=== PATIENT | female | born 1940 | race Caucasian/White ===

== ENCOUNTER 2019-06-28 12:02 | Inpatient (IN) | payer OTHER ==
[~2019-06-28] VITALS: Ht 154.9 cm; Wt 49.9 kg
[2019-06-28 12:39] LABS: BASOPHILS % (AUTO) 0.5 % (0.0-2.0); EOSINOPHILS % (AUTO) 0.6 % (0.0-6.0); HEMATOCRIT 41 % (33-45); HEMOGLOBIN 13.3 g/dL (11.5-14.8); LYMPHOCYTES % (AUTO) 12.1 % (20.0-44.0); MEAN CORPUSCULAR HGB CONC 33 g/dl (31.0-36.0); MEAN CORPUSCULAR VOLUME 91 fL (82-100); MONOCYTES # (AUTO) 0.6 /CMM (0.1-1.30); MONOCYTES % (AUTO) 7.1 % (2.0-12.0); NEUTROPHILS # (AUTO) 6.8 /CMM (1.8-8.9); NEUTROPHILS % (AUTO) 79.7 % (43.0-81.0); PLATELET COUNT (AUTO) 354 /CMM (150-450); RED BLOOD CELL COUNT(AUTO) 4.47 MIL/uL (4.0-5.2); WHITE BLOOD COUNT (AUTO) 8.5 K/uL (4.3-11.0)
--- NOTE | 2019-06-28 12:42 | NUR ---
DR. MARS (ONCOLOGIST) ON THE PHONE WITH DR. LOZANO.
--- NOTE | 2019-06-28 12:43 | NUR ---
Patient awake alert her friend @ bedside non persian speaking Noemy bonillaa for telehealth director -patient made aware plan of care .
[2019-06-28 12:49] LABS: CALCIUM, SERUM 9.2 mg/dL (8.5-10.1); CARBON DIOXIDE 28 mmol/L (21-32); CHLORIDE 95 mmol/L (98-107); CREATININE 0.9 mg/dL (0.6-1.3); GLUCOSE 136 mg/dL (74-106); POTASSIUM 5.8 mmol/L (3.5-5.1); SODIUM SERUM 129 mmol/L (136-145); UREA NITROGEN, BLOOD 11 mg/dL (7-18)
[2019-06-28 12:54] LABS: ALANINE AMINOTRANSFERASE 15 U/L (12-78); ALBUMIN 2.1 g/dL (3.4-5.0); ALKALINE PHOSPHATASE 115 U/L (46-116); ASPARTATE AMINOTRANSFERASE 48 U/L (15-37); BILIRUBIN,DIRECT 0.1 mg/dL (0.0-0.2); BILIRUBIN,TOTAL 0.5 mg/dL (0.2-1.0); LIPASE 63 U/L (73-393); TOTAL PROTEIN, SERUM 7.1 g/dL (6.4-8.2)
[2019-06-28] MEDS ORDERED: IOHEXOL-300 100 ML VIAL IV ONE (12:55)
[2019-06-28] MEDS ORDERED: IV NS 0.9% 250 ML IV ONE (12:55)
[2019-06-28] MEDS ORDERED: CT SWABBABLE VALVE TRANS SET 1 EA INFUS.SET MC ONE (12:55)
--- NOTE | 2019-06-28 13:39 | NUR ---
Patient agress for in and out cath prep and assisted by ANAIS Farooq observed sterile technique urine obtained and send to lab
[2019-06-28 13:43] LABS: APPEARANCE,URINE Clear (CLEAR); BILIRUBIN,URINE SMALL (NEGATIVE); BLOOD, URINE Negative Ery/uL (NEGATIVE); COLOR,URINE Yellow (YELLOW); KETONES,URINE 15 (NEGATIVE); LEUKOCYTE ESTERASE ,URINE Negative (NEGATIVE); NITRITE, URINE Negative (NEGATIVE); PROTEIN,URINE 30 mg/dl (NEGATIVE); UGLUCOSE Negative (NEGATIVE)
[2019-06-28 13:45] LABS: BACTERIA,URINE Few /HPF (None Seen); SQUAMOUS EPITHELIAL CELL,UR Few /HPF (None Seen)
--- NOTE | 2019-06-28 13:46 | NUR ---
CALLED [facility], PAGED SANAM
--- NOTE | 2019-06-28 13:50 | NUR ---
CALLED NURSING SUP FOR MEDSURG BED
--- NOTE | 2019-06-28 14:06 | NUR ---
BED ASSIGNED TO 308-1 PER NURSING PROTOTYPE DEICER ASSEMBLER.
[2019-06-28] MEDS ORDERED: Z GUARD REMEDY 2 OZ OINT TP PRN (14:30)
--- NOTE | 2019-06-28 14:31 | NUR ---
Called report [id number] spoke to Yasmin GONZALEZ
--- NOTE | 2019-06-28 14:34 | NUR ---
Noted RAC IV no edema .no redness ,no pain patient awake alert non distress no nausea and vomit @ this time continue to monitor
--- NOTE | 2019-06-28 15:30 | NUR ---
MS/RN Admitting note Patient received resting in bed, A/O x3, anxious, showing no signs of SOB, saturating >95% on RA. Skin assessed, sacral redness noted. Photo placed in chart. IV line is clean and patent, vital signs 123/63, 82, 21, 98.3, 98% RA. S/B Dr. Jordan and admitting orders given. With quill machine tender at bedside, Patient stated she has an at home medication that she takes daily, however, patient refuses to give medication to the pharmacy. Patient states she only takes medication for her HIV. Does not take any other medication. Patient states "The nurses take too long to take the medication, i would rather take it myself when I want to." Med Recon stated they tried to get medication information from the patient's AIDS clinic. Denied at first, due to protecting the patient's privacy. However, later on they sent medication list. Placed in chart. Patient refuses to take any other medication other than the ones she has brought with her. Bed is in lowest position, side rails x2 in upright position, call light is within reach and patient is aware of how to call for assistance when needed. Fall and safety precautions enforced. Will continue with plan of care.
[2019-06-28 16:00] VITALS: BP 123/62
[2019-06-28] MEDS ORDERED: [UNRECOGNIZED DRUG - REMARK] PO (16:22)
[2019-06-28] MEDS ORDERED: BICT1TAB PO (16:22)
[2019-06-28] MEDS ORDERED: ENSURE ENLIVE 237 ML LIQUID (VANILLA) PO SCH (17:00)
[2019-06-28 17:05] VITALS: BP 123/62
--- NOTE | 2019-06-28 18:30 | NUR ---
MS/RN Closing note Patient is resting in bed, A/O x4, showing no signs of acute distress or SOB, saturating >95% on RA. Iv line is clean and patent. All patient needs met. Bed is in lowest position, side rails x2 in upright position, call light is within reach and patient is aware of how to call for assistance when needed. Will endorse to shift boss.
[2019-06-28] MEDS: HYDROCODONE/APAP 5/325MG 1 EACH TABLET PO PRN (19:23)
--- NOTE | 2019-06-28 19:30 | NUR ---
MS RN NOTES RECEIVED ON BED A/O X3,BREATHING NON LABORED,ABLE TO VERBALIZED NEEDS.SALINE LOCK RIGHT AC INTACT AND PATENT.C/O ABDOMINAL PAIN 1/10 ON PAIN SCALE,JUST MEDICATED WITH NORCO BY DAY NURSE.ABDOMEN DISTENDED BUT SOFT, AWAITING ULTRASOUND PARACENTESIS,CONSENT SIGNED.CALL LIGHT IN REACH,NEEDS ANTICIPATED.
--- NOTE | 2019-06-28 19:39 | NUR ---
MS/RN home-med After having med-recon, myself and 2 translators explain to the patient if we can give her home med to the pharmacy, to give during her stay here at [facility], patient still refuses. She insists on taking it herself at the bedside. Charge nurse lamont, MD miguel, pharmacy notified.
[2019-06-28 20:00] VITALS: BP 111/70
[2019-06-28] MEDS: MAG HYDROX/AL HYDROX/SIMETH 30 ML UDC PO PRN (21:29)
--- NOTE | 2019-06-28 21:29 | NUR ---
MS RN NOTES C/O SOUR REFLUX,HOB ELEVATED,MEDICATED WITH MAALOX 30ML PO ORDERED.
[2019-06-28] MEDS: BLOOD SUGAR DIAGNOSTIC 1 EACH STRIP IN SCH (21:30)
--- NOTE | 2019-06-28 21:45 | NUR ---
MS RN NOTES ACCU-CHECK BLOOD SUGAR CHECK 158,REFUSED INSULIN
[2019-06-28 22:00] VITALS: BP 111/70
[2019-06-29] MEDS: ONDANSETRON HCL/PF 4 MG/2 ML VIAL IVP PRN (01:33)
--- NOTE | 2019-06-29 01:33 | NUR ---
MS RN NOTES VOMITING,MEDICATED WITH ZOFRAN 4MG IV ORDERED
[2019-06-29] MEDS: BLOOD SUGAR DIAGNOSTIC 1 EACH STRIP IN SCH ×4 (05:56→21:38)
--- NOTE | 2019-06-29 05:59 | NUR ---
SHAHLA GONZALEZ NOTES BLOOD SUGAR CHECK 108,NO INSULIN COVERAGE Addendum: 06/29/19 at 0602 by MURALI STUART RN WRONG ENTRY OF NOTES,NOT FOR THIS PATIENT.
--- NOTE | 2019-06-29 06:00 | NUR ---
MS RN NOTES ACCU-CHECK BLOOD SUGAR CHECK 122,NO INSULIN COVERAGE.
[2019-06-29 06:29] LABS: CALCIUM, SERUM 8.4 mg/dL (8.5-10.1); CREATININE 0.7 mg/dL (0.6-1.3); MAGNESIUM 2.2 mg/dL (1.8-2.4); POTASSIUM 5.1 mmol/L (3.5-5.1)
[2019-06-29 06:30] LABS: BASOPHILS % (AUTO) 0.5 % (0.0-2.0); EOSINOPHILS % (AUTO) 0.4 % (0.0-6.0); HEMATOCRIT 38 % (33-45); HEMOGLOBIN 12.4 g/dL (11.5-14.8); LYMPHOCYTES % (AUTO) 10.8 % (20.0-44.0); MEAN CORPUSCULAR HGB CONC 33 g/dl (31.0-36.0); MEAN CORPUSCULAR VOLUME 90 fL (82-100); MONOCYTES # (AUTO) 0.6 /CMM (0.1-1.30); NEUTROPHILS # (AUTO) 7.2 /CMM (1.8-8.9); NEUTROPHILS % (AUTO) 81.3 % (43.0-81.0); PLATELET COUNT (AUTO) 379 /CMM (150-450); RED BLOOD CELL COUNT(AUTO) 4.16 MIL/uL (4.0-5.2); WHITE BLOOD COUNT (AUTO) 8.8 K/uL (4.3-11.0)
--- NOTE | 2019-06-29 06:37 | NUR ---
MS RN NOTES RESTING COMFORTABLY ON BED,NAUSEA,VOMITING IMPROVED,ABDOMEN REMAINS DISTENDED AWAITING ULTRASOUND PARACENTESIS.IN NO ACUTE DISTRESS.WILL ENDORSE TO DAY NURSE FOR JENNIFER.
[2019-06-29 08:00] VITALS: BP_SYST 138; BP_SYST 159; BP_DIAS 66; BP_DIAS 79
[2019-06-29] MEDS: BIKTARVY PO SCH (09:00)
--- NOTE | 2019-06-29 09:00 | NUR ---
MS RN NOTES PATIENT HAS BIKTARVY (BICTEGRAVIR/EMTRICITABINE/TENOFOVIR) AT BEDSIDE AND IS SELF ADMINISTERING. PATIENT REFUSED TO GIVE MEDICATION TO PHARMACY AND VERBALIZED SHE WILL TAKE ONE TABLET PO DAILY. PATIENT DOSED THIS AM. MD AWARE. PHARMACY AWARE.
[2019-06-29] MEDS: HYDROCODONE/APAP 5/325MG 1 EACH TABLET PO PRN ×3 (09:57→21:45)
[2019-06-29] MEDS: GLUCERNA SHAKE 237 ML CAN PO SCH ×2 (09:57→17:33)
[2019-06-29] MEDS: ACETAMINOPHEN 325 MG TABLET PO PRN (12:32)
--- NOTE | 2019-06-29 13:50 | NUR ---
RN MS NOTES US GUIDED PARACENTESIS DONE AT BEDSIDE. 3500 ML OUTPUT. PATIENT RESTING COMFORTABLY, NO DISTRESS NOTED, VS ARE STABLE. BODY FLUID TAKEN TO LAB.
[2019-06-29 16:00] VITALS: BP 130/70
--- NOTE | 2019-06-29 19:08 | NUR ---
Patient resting in bed. IV access intact and patent, HL. Patient able to walk to bathroom with assistance. All needs attended. Will endorse to next shift for JENNIFER.
--- NOTE | 2019-06-29 19:30 | NUR ---
MS/RN OPENING NOTES: RECEIVED PATIENT ON BED A/O X4, BREATHING EVEN AND NON LABORED, VERBALLY RESPONSIVE AND ABLE TO MAKE NEEDS KNOWN. IV ACCESS LOCATED ON THE RIGHT AC #20G HL INTACT AND PATENT. NO COMPLAINS OF PAIN AT THIS TIME. SAFETY MEASURES ARE IN PLACE. CALL LIGHT IN REACH. WILL MONITOR PATIENT ACCORDINGLY.
[2019-06-29 20:00] VITALS: BP 100/58
--- NOTE | 2019-06-29 21:45 | NUR ---
MS/RN NOTES: PATIENT COMPLAINED OF 6/10 HEADACHE. NORCO 5-325 1 TAB PO WAS GIVEN ORDERED FOR MODERATE PAIN. PATIENT IS STABLE. WILL MONITOR PATIENT ACCORDINGLY.
[2019-06-30 06:27] LABS: BASOPHILS % (AUTO) 0.3 % (0.0-2.0); EOSINOPHILS % (AUTO) 0.9 % (0.0-6.0); HEMATOCRIT 37 % (33-45); HEMOGLOBIN 11.8 g/dL (11.5-14.8); LYMPHOCYTES # (AUTO) 0.8 /CMM (0.8-4.8); LYMPHOCYTES % (AUTO) 10.1 % (20.0-44.0); MEAN CORPUSCULAR HGB CONC 32 g/dl (31.0-36.0); MEAN CORPUSCULAR VOLUME 91 fL (82-100); MONOCYTES # (AUTO) 0.7 /CMM (0.1-1.30); MONOCYTES % (AUTO) 8.6 % (2.0-12.0); NEUTROPHILS # (AUTO) 6.4 /CMM (1.8-8.9); NEUTROPHILS % (AUTO) 80.1 % (43.0-81.0); PLATELET COUNT (AUTO) 327 /CMM (150-450); RED BLOOD CELL COUNT(AUTO) 4.03 MIL/uL (4.0-5.2)
--- NOTE | 2019-06-30 06:35 | NUR ---
MS/RN CLOSING NOTES: PATIENT IS IN BED SLEEPING AND AROUSABLE TO VERBAL STIMULI. NO SIGNIFICANT CHANGES IN CONDITION. BREATHING EVEN AND NON LABORED. IV ACCESS ON THE RIGHT AC #20G HL INTACT AND PATENT. NO COMPLAINS OF PAIN AT THIS TIME. SAFETY MEASURES ARE IN PLACE. CALL LIGHT IN REACH. KEPT PT WARM AND DRY AT ALL TIMES. ALL NURSING NEEDS MET AND PROVIDED. WILL ENDORSE TO DAY SHIFT FOR JENNIFER.
[2019-06-30 06:46] LABS: CREATININE 0.7 mg/dL (0.6-1.3); POTASSIUM 4.9 mmol/L (3.5-5.1)
[2019-06-30] MEDS: BLOOD SUGAR DIAGNOSTIC 1 EACH STRIP IN SCH ×4 (06:52→21:37)
--- NOTE | 2019-06-30 07:31 | NUR ---
MS/RN Opening note Patient received resting in bed, A/O x4, showing no signs of acute distress or SOB, saturating >95% on RA. IV line is clean and patent. Bed is in lowest position, side rails x2 in upright position, call light is within reach and patient is aware of how to call for assistance when needed. Fall and safety precautions enforced. Will continue with plan of care.
[2019-06-30] MEDS: HYDROCODONE/APAP 5/325MG 1 EACH TABLET PO PRN ×2 (07:47→17:19)
[2019-06-30] MEDS: ONDANSETRON HCL/PF 4 MG/2 ML VIAL IVP PRN ×2 (07:47→18:08)
[2019-06-30 08:00] VITALS: BP 113/68
[2019-06-30 08:08] LABS: CANCER AG, 15-3 414.3 U/mL (0.0-25.0)
[2019-06-30] MEDS: GLUCERNA SHAKE 237 ML CAN PO SCH ×2 (08:51→17:19)
--- NOTE | 2019-06-30 08:53 | NUR ---
MS/RN home med Patient has Biktarvy (Bictegravir/emtricitabine/tenofovir) at bedside and is self-administering. Patient refused to give medication to pharmacy and verbalized she will take ONE TABLET PO DAILY. Patient stated she wants to rest and she has not taken it and will take it around 1200. MD aware. Pharmacy aware. Will continue to monitor.
--- NOTE | 2019-06-30 09:06 | NUR ---
MS/RN note S/B MD, stated patient will not need coverage for blood glucose level due to patient not being able to eat anything due to N/V.
[2019-06-30 09:17] VITALS: BP 113/68
[2019-06-30] MEDS: BIKTARVY PO SCH (11:00)
--- NOTE | 2019-06-30 11:26 | NUR ---
MS/RN blood sugar BS 145, no coverage per MD, due to patient not being able to eat
[2019-06-30 16:00] VITALS: BP 132/64
[2019-06-30 17:30] VITALS: BP 132/64
[2019-06-30] MEDS: ACETAMINOPHEN 325 MG TABLET PO PRN (17:30)
--- NOTE | 2019-06-30 17:35 | NUR ---
MS/RN note BS 164, no coverage this time since patient is not eating. MD aware.
--- NOTE | 2019-06-30 18:19 | NUR ---
MS/RN CLOSING NOTE Patient is resting in bed, A/O x4, showing no signs of acute distress or SOB, saturating >95% on RA. Vital signs WNL. Temp was 99.1 but went down to 98.0 after tylenol given. IV line removed. Patient kept clean and dry throughout shift. All patient needs met. Patient takes own home medication at the bedside. MD aware, pharmacy aware. Bed is in lowest position, side rails x2 in upright position, call light is within reach and patient is aware of how to call for assistance when needed. Will endorse to legal support assistant.
--- NOTE | 2019-06-30 19:05 | NUR ---
MS RN NOTES Received pt in bed awake and able to make needs known. pt a/o x3 Zimbabwean speaking but also understands Vietnamese. Respirations even and unlabored with no s/s of acute distress or sob noted. a this time. pt noted with no iv access at this time. Pt noted as able to take own home medication at the bedside, MD aware, as well as pharmacy. safety measures in place with bed in lowest locked position with side rails up x2. call light within reach. will continue to monitor.
[2019-06-30 20:00] VITALS: BP 107/63
[2019-06-30] MEDS: MORPHINE SULFATE SR 15 MG TABLET.SA PO SCH (21:36)
[2019-06-30] MEDS: ONDANSETRON 4 MG TAB.RAPDIS PO PRN (21:37)
[2019-07-01] MEDS: BLOOD SUGAR DIAGNOSTIC 1 EACH STRIP IN SCH ×4 (06:52→22:08)
--- NOTE | 2019-07-01 06:53 | NUR ---
MS RN NOTES Received pt in bed awake and able to make needs known. pt a/o x3 Sudanese speaking but also understands Greek. Respirations even and unlabored with no s/s of acute distress or sob noted at this time. pt noted with no iv access at this time. Pt noted as able to take own home medication at the bedside, MD aware, as well as pharmacy. pt kept clean, dry, and comfortable. pt noted with 2 episodes of vomiting 150cc out. safety measures in place with bed in lowest locked position with side rails up x2. call light within reach. will endorse to oncoming nurse for shirley.
--- NOTE | 2019-07-01 07:50 | NUR ---
MS/RN Opening note Patient received resting in bed, A/O x4, showing no signs of acute distress or SOB, saturating >95% on RA. No IV line noted. Patient is taking home medications at the bedside, MD aware, pharmacy aware. Bed is in lowest position, side rails x2 in upright position, call light is within reach and patient is aware of how to call for assistance when needed. Safety measures in place. Will continue with plan of care.
[2019-07-01 08:00] VITALS: BP 124/70
[2019-07-01] MEDS: GLUCERNA SHAKE 237 ML CAN PO SCH ×2 (08:00→16:24)
[2019-07-01] MEDS: MORPHINE SULFATE SR 15 MG TABLET.SA PO SCH ×2 (08:43→22:08)
[2019-07-01] MEDS: DOCUSATE SODIUM 100 MG CAPSULE PO SCH ×2 (08:44→16:23)
[2019-07-01] MEDS: ONDANSETRON 4 MG TAB.RAPDIS PO PRN (08:56)
[2019-07-01 09:00] VITALS: BP 124/70
--- NOTE | 2019-07-01 09:00 | NUR ---
MS/RN note patient stated she will take her home med at the bedside at 1200. MD aware, pharmacy aware. Will continue to monitor.
[2019-07-01 10:11] LABS: BASOPHILS % (AUTO) 0.2 % (0.0-2.0); EOSINOPHILS % (AUTO) 0.3 % (0.0-6.0); HEMATOCRIT 37 % (33-45); HEMOGLOBIN 12.4 g/dL (11.5-14.8); LYMPHOCYTES # (AUTO) 0.9 /CMM (0.8-4.8); LYMPHOCYTES % (AUTO) 9.5 % (20.0-44.0); MEAN CORPUSCULAR HGB CONC 33 g/dl (31.0-36.0); MEAN CORPUSCULAR VOLUME 91 fL (82-100); MONOCYTES # (AUTO) 0.8 /CMM (0.1-1.30); MONOCYTES % (AUTO) 7.9 % (2.0-12.0); NEUTROPHILS # (AUTO) 8.1 /CMM (1.8-8.9); NEUTROPHILS % (AUTO) 82.1 % (43.0-81.0); PLATELET COUNT (AUTO) 338 /CMM (150-450); RED BLOOD CELL COUNT(AUTO) 4.12 MIL/uL (4.0-5.2); WHITE BLOOD COUNT (AUTO) 9.8 K/uL (4.3-11.0)
[2019-07-01 10:59] LABS: CREATININE 0.7 mg/dL (0.6-1.3); POTASSIUM 4.8 mmol/L (3.5-5.1)
[2019-07-01] MEDS: MAG HYDROX/AL HYDROX/SIMETH 30 ML UDC PO PRN (11:40)
--- NOTE | 2019-07-01 12:30 | NUR ---
MS/RN note POC 160. No coverage.
[2019-07-01] MEDS: BIKTARVY PO SCH (15:00)
[2019-07-01] MEDS: HYDROCODONE/APAP 5/325MG 1 EACH TABLET PO PRN (15:12)
[2019-07-01 16:00] VITALS: BP 104/69
--- NOTE | 2019-07-01 16:30 | NUR ---
MS/RN note POC glucose 164. No coverage. Per MD, since patient is not eating.
--- NOTE | 2019-07-01 18:20 | NUR ---
MS/RN Closing note Patient is resting in bed, A/O x4, showing no signs of acute distress or SOB, saturating >95% on RA. Vital signs WNL. No IV line noted. Patient took home medication at the bedside, MD aware, pharmacy aware. All patient needs met, all due meds given. Patient refused bed bath/shower this shift. Linen change done. Bed is in lowest position, side rails x2 in upright position, call light is within reach and patient is aware of how to call for assistance when needed. Safety measures in place. Will endorse to storage brine worker.
[2019-07-01 19:30] VITALS: BP 108/68
--- NOTE | 2019-07-01 19:30 | NUR ---
MS RN NOTES PATIENT IN BED, AWAKE ALERT AND ORIENTED X 4. SHOWS NO SIGNS OF ACUTE DISTRESS, NO SOB. BREATHING EVEN AND UNLABORED ON ROOM AIR. NO IV LINE NOTED. PATIENT TAKES HOME MEDICATIONS AT BEDSIDE, MD IS AWARE. SAFETY PRECAUTIONS ARE IN PLACE. BED IN LOWEST POSITION LOCKED AND CALL LIGHT KEPT WITHIN REACH. WILL CONTINUE TO MONITOR.
[2019-07-01 20:00] VITALS: BP 108/68
--- NOTE | 2019-07-01 21:55 | NUR ---
MS RN NOTES PATIENT BG 172. NO COVERAGE GIVEN, PATIENT NOT EATING. MD IS AWARE.
[2019-07-02] MEDS ORDERED: hydrALAZINE HCL IV 20 MG VIAL IV PRN (04:00)
[2019-07-02 06:20] LABS: BASOPHILS # (AUTO) 0.1 /CMM (0.0-0.2); BASOPHILS % (AUTO) 1.1 % (0.0-2.0); EOSINOPHILS % (AUTO) 0.6 % (0.0-6.0); HEMATOCRIT 37 % (33-45); LYMPHOCYTES # (AUTO) 0.9 /CMM (0.8-4.8); LYMPHOCYTES % (AUTO) 11.1 % (20.0-44.0); MEAN CORPUSCULAR HGB CONC 33 g/dl (31.0-36.0); MEAN CORPUSCULAR VOLUME 91 fL (82-100); MONOCYTES # (AUTO) 0.7 /CMM (0.1-1.30); MONOCYTES % (AUTO) 8.3 % (2.0-12.0); NEUTROPHILS # (AUTO) 6.5 /CMM (1.8-8.9); NEUTROPHILS % (AUTO) 78.9 % (43.0-81.0); PLATELET COUNT (AUTO) 346 /CMM (150-450); RED BLOOD CELL COUNT(AUTO) 4.04 MIL/uL (4.0-5.2); WHITE BLOOD COUNT (AUTO) 8.3 K/uL (4.3-11.0)
[2019-07-02 06:28] LABS: CALCIUM, SERUM 8.3 mg/dL (8.5-10.1); CREATININE 0.8 mg/dL (0.6-1.3); POTASSIUM 5.4 mmol/L (3.5-5.1)
[2019-07-02] MEDS: BLOOD SUGAR DIAGNOSTIC 1 EACH STRIP IN SCH ×4 (06:32→21:34)
--- NOTE | 2019-07-02 06:33 | NUR ---
MS RN NOTES PATIENT IN BED ASLEEP ALERT AND ORIENTED X 4. SHOWS NO SIGNS OF ACUTE DISTRESS, NO SOB. BREATHING EVEN AND UNLABORED ON ROOM AIR. NO IV LINE NOTED. PATIENT TAKES HOME MEDICATIONS AT BEDSIDE, MD IS AWARE. ALL DUE MEDICATIONS GIVEN. SAFETY PRECAUTIONS ARE IN PLACE. BED IN LOWEST POSITION LOCKED AND CALL LIGHT KEPT WITHIN REACH. WILL ENDORSE TO ONCOMING NURSE.
[2019-07-02 07:41] LABS: EOSINOPHILS % (MANUAL) 1 % (0-4); LYMPHOCYTES % (MANUAL) 15 % (16-48); MONOCYTES % (MANUAL) 7 % (0-11.0); NEUTROPHILS % (MANUAL) 77 (42-76)
--- NOTE | 2019-07-02 07:41 | NUR ---
MS/RN Opening note Patient received resting in bed, A/O x4, showing no signs of acute distress or SOB, breathing even and unlabored saturating >95% on RA. No IV line noted. Patient takes home medication at the bedside, MD aware, Pharmacy aware. Bed is in lowest position, side rails x3 in upright position, call light is within reach and patient is aware of how to call for assistance when needed. Fall and safety precautions are in place. Will continue with plan of care.
[2019-07-02 08:00] VITALS: BP 114/75
[2019-07-02] MEDS: GLUCERNA SHAKE 237 ML CAN PO SCH ×2 (08:00→17:04)
[2019-07-02] MEDS ORDERED: IV NS 0.9% 1,000 ML BAG IV SCH ×2 (08:00→19:30)
[2019-07-02] MEDS: MORPHINE SULFATE SR 15 MG TABLET.SA PO SCH ×2 (08:25→21:30)
[2019-07-02] MEDS: DOCUSATE SODIUM 100 MG CAPSULE PO SCH ×2 (08:29→17:00)
[2019-07-02] MEDS ORDERED: LORAZEPAM 0.5 MG TABLET PO PRN (09:00)
--- NOTE | 2019-07-02 09:00 | NUR ---
MS/RN NOTE Patient self-admin home med at the bedside. MD aware, pharmacy aware.
[2019-07-02] MEDS: BIKTARVY PO SCH (10:00)
[2019-07-02] MEDS: IV NS 0.9% 1,000 ML IV PRN (11:20)
[2019-07-02] MEDS: HYDROCODONE/APAP 5/325MG 1 EACH TABLET PO PRN (15:48)
[2019-07-02] MEDS: ONDANSETRON 4 MG TAB.RAPDIS PO PRN (15:49)
[2019-07-02 16:00] VITALS: BP 102/69
--- NOTE | 2019-07-02 18:08 | NUR ---
MS/RN Closing note Patient is resting in bed, A/O x4, showing no signs of acute distress or SOB, breathing even and unlabored saturating >95% on RA. IV line in the left upper arm #22g is clean and running NS @ 75ml/hr. Patient took home medication at the bedside, MD aware, Pharmacy aware. Patient kept clean and dry throughout shift, all patient needs met, all due meds given. Bed is in lowest position, side rails x3 in upright position, call light is within reach and patient is aware of how to call for assistance when needed. Fall and safety precautions are in place. Will endorse to notch machine operator.
--- NOTE | 2019-07-02 19:30 | NUR ---
MS RN OPENING NOTES PATIENT SLEEPING IN BED, EASY TO AWAKEN. ALERT & ORIENTED X 4. NO S/S OF ACUTE RESPIRATORY DISTRESS OR SOB. NO COMPLAINTS OF PAIN AT THIS TIME. IV PRESENT ON RIGHT AC, INTACT & PATENT, WITH NS RUNNING AT 75ML/HR. BED LOCKED, IN SEMI-FOWLERS POSITION, SIDE RAILS X2, CALL LIGHT WITHIN REACH. WILL CONTINUE TO MONITOR.
[2019-07-02 20:00] VITALS: BP 111/68
[2019-07-02 20:46] VITALS: BP 111/68
[2019-07-03] VITALS (10 sets, daily range): BP systolic 96–116; BP diastolic 60–86
[2019-07-03] MEDS: ZOLPIDEM TARTRATE 5 MG TABLET PO PRN (02:00)
--- NOTE | 2019-07-03 02:00 | NUR ---
MS RN NOTES PATIENT REPORTED DIFFICULTY FALLING ASLEEP. ADMINISTERED PRN AMBIEN 5MG PER PATIENT'S REQUEST. VITAL SIGNS - BP: 100/23 HR: 94 RR: 18. CALL LIGHT WITHIN REACH. WILL CONTINUE TO MONITOR EFFECTIVENESS OF MEDICATION.
--- NOTE | 2019-07-03 06:49 | NUR ---
MS RN CLOSING NOTES PATIENT SLEEPING IN BED, EASY TO AWAKEN. ALERT & ORIENTED X 4. ON ROOM AIR. PATIENT NPO SINCE MIDNIGHT. CONSENTS FOR PORTACATH INSERTION SIGNED AND PLACED IN CHART. NO S/S OF ACUTE RESPIRATORY DISTRESS AND NO COMPLAINTS OF PAIN AT THIS TIME. IV ON LEFT UPPER ARM, SIZE 22, INTACT & PATENT, NS RUNNING AT 75CC/HR. BED LOCKED, SIDE RAILS X2, SEMI-THOMAS'S POSITION, CALL LIGHT WITHIN REACH. WILL ENDORSE TO DAY SHIFT NURSE TO FOLLOW PLAN OF CARE.
[2019-07-03] MEDS: BLOOD SUGAR DIAGNOSTIC 1 EACH STRIP IN SCH ×4 (06:58→21:47)
--- NOTE | 2019-07-03 07:05 | NUR ---
MS RN OPENING NOTES. RECEIVED PATIENT IN BED, ALERT AND AWAKE. NO SOB. DENIES ANY C/O PAIN NOR DISCOMFORT AT THIS TIME. NPO FOR PORTACATH PLACEMENT TODAY AT 12PM. LEFT UPPER ARM IV ACCES INTACT AND PATENT. BED IN LOWEST POSITION, LOCKED. BED ALARM ON. CALL LIGHT WITHIN REACH.
[2019-07-03] MEDS: GLUCERNA SHAKE 237 ML CAN PO SCH ×2 (08:00→17:20)
[2019-07-03] MEDS: DOCUSATE SODIUM 100 MG CAPSULE PO SCH ×2 (09:01→17:03)
[2019-07-03] MEDS: MORPHINE SULFATE SR 15 MG TABLET.SA PO SCH ×2 (09:02→21:00)
[2019-07-03 09:04] LABS: BASOPHILS % (AUTO) 0.5 % (0.0-2.0); EOSINOPHILS % (AUTO) 0.8 % (0.0-6.0); HEMATOCRIT 36 % (33-45); HEMOGLOBIN 11.6 g/dL (11.5-14.8); LYMPHOCYTES # (AUTO) 0.9 /CMM (0.8-4.8); LYMPHOCYTES % (AUTO) 10.1 % (20.0-44.0); MEAN CORPUSCULAR HGB CONC 32 g/dl (31.0-36.0); MEAN CORPUSCULAR VOLUME 91 fL (82-100); MONOCYTES # (AUTO) 0.8 /CMM (0.1-1.30); MONOCYTES % (AUTO) 9.3 % (2.0-12.0); NEUTROPHILS # (AUTO) 6.8 /CMM (1.8-8.9); NEUTROPHILS % (AUTO) 79.3 % (43.0-81.0); PLATELET COUNT (AUTO) 339 /CMM (150-450); RED BLOOD CELL COUNT(AUTO) 3.92 MIL/uL (4.0-5.2); WHITE BLOOD COUNT (AUTO) 8.6 K/uL (4.3-11.0)
[2019-07-03] MEDS: BIKTARVY PO SCH (09:09)
[2019-07-03] MEDS: IV NS 0.9% 1,000 ML IV PRN (09:10)
[2019-07-03 09:18] LABS: CALCIUM, SERUM 7.9 mg/dL (8.5-10.1); CREATININE 0.7 mg/dL (0.6-1.3); POTASSIUM 5.2 mmol/L (3.5-5.1)
--- NOTE | 2019-07-03 12:12 | NUR ---
MS RN NOTES PATIENT OFF UNIT. LEFT FOR IN STABLE CONDITION.
[2019-07-03] MEDS ORDERED: IOHEXOL 240MG/ML 0 ML IV ONE (12:21)
[2019-07-03] MEDS ORDERED: ANESTHESIA TRAY IN PYXIS 1 EA TRAY MC ONE (12:21)
[2019-07-03] MEDS ORDERED: LIDOCAINE HCL/MPF 1% 30 ML VIAL IJ ONE (12:22)
--- NOTE | 2019-07-03 15:20 | NUR ---
MS RN NOTES PATIENT RETURNED FROM OR FOR LAMAR-CATH PLACEMENT TO RIGHT UPPER CHEST. INCISION SITE NOTED TO RT SIDE OF NECK AND RIGHT UPPER CHEST WITHOUT S/S OF COMPLICATIONS OBSERVED WITH DERMABOND IN PLACE. ALERT AND VERBALLY RESPONSIVE. DENIES ANY C/O PAIN NOR DISCOMFORT AT THIS TIME. BED IN LOWEST POSITION, LOCKED. BED ALARM ON. CALL LIGHT WITHIN REACH. LEFT UPPER # 22 INTACT AND PATENT. IVF RESUMED ORDERED.
[2019-07-03] MEDS: ACETAMINOPHEN 325 MG TABLET PO PRN (17:03)
--- NOTE | 2019-07-03 18:48 | NUR ---
MS RN CLOSING NOTES ALERT AND ORIENTED X4. NO S/S OF RESPIRATORY DISTRESS. DENIES ANY C/O PAIN NOR DISCOMFORT AT THIS TIME. RESTING COMFORTABLY IN BED. REMINDED AND RE-EDUCATED PATIENT THE USE OF INCENTIVE SPIROMETER. LEFT UPPER ARM # 22 INTACT AND PATENT INFUSING NS @ 75 ML/HR KAZ WELL. . BED IN LOWEST POSITION, LOCKED. BED ALARM ON. CALL LIGHT WITHIN REACH. IN NO APPARENT DISTRESS.
--- NOTE | 2019-07-03 19:35 | NUR ---
MS RN OPENING NOTES Patient is received resting in bed a/o x4. Stable on room air, breathing even and unlabored, no signs of respiratory distress. Incentive spirometer is at bedside, reminded to use often throughout the hour. Denies any pain at this time and no acute distress noted. IV located on KAYE #22 running NS @ 75 ml/hr. Safety precautions are in place with bed in lowest position, locked, and call light within reach. Will continue to monitor.
[2019-07-03] MEDS: HYDROCODONE/APAP 5/325MG 1 EACH TABLET PO PRN (21:15)
--- NOTE | 2019-07-03 21:47 | NUR ---
MS RN NOTES FSBS- 228. NO COVERAGE.
[2019-07-04] MEDS: IV NS 0.9% 1,000 ML IV PRN (04:50)
--- NOTE | 2019-07-04 06:07 | NUR ---
MS RN CLOSING NOTES PATIENT IS CURRENTLY RESTING IN BED, A/O X3-4. STABLE ON RA BREATHING EVEN AND UNLABORED, NO SIGNS OF SOB OR ACUTE DISTRESS. NO COMPLAINTS OF ANY PAIN OR DISCOMFORT AT THE MOMENT. POST-OP RIGHT UPPER CHEST PORTACATH. IV LOCATED N LEFT HAND G#24 RUNNING NS. ALL NEEDS WERE MET, PATIENT WAS KEPT CLEAN AND DRY THROUGHOUT THE NIGHT. SAFETY PRECAUTIONS IN PLACE WITH BED IN LOWEST POSITION, CALL LIGHT WITHIN REACH, AND BREAKS ON. WILL ENDORSE TO ONCOMING SHIFT ABOUT JENNIFER.
[2019-07-04 06:35] LABS: BASOPHILS % (AUTO) 0.1 % (0.0-2.0); HEMATOCRIT 34 % (33-45); LYMPHOCYTES # (AUTO) 0.8 /CMM (0.8-4.8); MEAN CORPUSCULAR HGB CONC 33 g/dl (31.0-36.0); MEAN CORPUSCULAR VOLUME 91 fL (82-100); MONOCYTES # (AUTO) 0.8 /CMM (0.1-1.30); MONOCYTES % (AUTO) 7.7 % (2.0-12.0); NEUTROPHILS # (AUTO) 8.4 /CMM (1.8-8.9); NEUTROPHILS % (AUTO) 84.2 % (43.0-81.0); PLATELET COUNT (AUTO) 332 /CMM (150-450); RED BLOOD CELL COUNT(AUTO) 3.72 MIL/uL (4.0-5.2); WHITE BLOOD COUNT (AUTO) 9.9 K/uL (4.3-11.0)
[2019-07-04 06:57] LABS: CALCIUM, SERUM 7.9 mg/dL (8.5-10.1); CREATININE 0.7 mg/dL (0.6-1.3); POTASSIUM 4.7 mmol/L (3.5-5.1)
[2019-07-04 08:00] VITALS: BP 115/66
--- NOTE | 2019-07-04 08:00 | NUR ---
MS RN OPENING NOTES RECEIVED PT IN BED. AWAKE, ALERT AND ORIENTED X3-4. SPEAKS CAMEROONIAN AND TAJIK. LAMAR CATH NOTED ON R UPPER CHEST. FALL RISK PRECAUTIONS IN PLACE. IV SITE INTACT AND PATENT. NO S/S OF INFECTION AND INFILTRATION NOTED. IV SITE NOTED ON KAYE G22. NS RUNNING AT 75CC/HR. PT ATE 90% OF BREAKFAST. WITH GLUCERNA. PT TOOK ALL DUE MEDS. TOLERATED WELL. NO ASE NOTED. NO S/S OF DEHYDRATION NOTED. SKIN TURGOR FAIR. MUCOUS MEMBRANES PINK AND MOIST. WILL CONTINUE TO MONITOR
[2019-07-04] MEDS: BIKTARVY PO SCH (08:36)
[2019-07-04] MEDS: DOCUSATE SODIUM 100 MG CAPSULE PO SCH ×2 (08:36→16:51)
[2019-07-04] MEDS: GLUCERNA SHAKE 237 ML CAN PO SCH ×2 (08:37→16:51)
[2019-07-04] MEDS: MORPHINE SULFATE SR 15 MG TABLET.SA PO SCH ×2 (08:43→21:08)
[2019-07-04] MEDS: HYDROCODONE/APAP 5/325MG 1 EACH TABLET PO PRN ×2 (08:44→13:41)
[2019-07-04] MEDS: BLOOD SUGAR DIAGNOSTIC 1 EACH STRIP IN SCH ×4 (09:04→21:09)
[2019-07-04 16:00] VITALS: BP 126/66
[2019-07-04] MEDS: ACETAMINOPHEN 325 MG TABLET PO PRN ×2 (17:17→21:42)
--- NOTE | 2019-07-04 17:59 | NUR ---
MR RN CLOSING NOTES PT IN BED, AWAKE ALERT AND ORIENTED X3-4. PLEASANT AND COOPERATIVE. NO COMPLAINTS OF PAIN OR DISCOMFORT. IV SITE NOTED ON L HAND 24G. NO S/S OF INFECTION OR INFILTRATION NOTED. PT IS AMBULATORY WITH ASSIST. PT WAS SEEN BY PT TODAY AND WAS ABLE TO AMBULATE AROUND THE UNIT. CONTINENT OF B/B. FALL RISK PRECAUUTIONS IN PLACE. INSTRUCTED PT TO ASK FOR ASSISTANCE FROM STAFF IF WANTING TO GET OUT OF BED. WILL CONT TO MONITOR.
--- NOTE | 2019-07-04 19:10 | NUR ---
MS RN RECEIVE PT IN BED A/O X 3, NO SHORTNESS OF BREATH. STABLE AND NOT IN DISTRESS,SAFETY MEASURES IN PLACE. WILL CONTINUE TO MONITOR.
[2019-07-04 19:58] VITALS: BP 108/57
[2019-07-04 20:00] VITALS: BP 108/57
[2019-07-04] MEDS: ZOLPIDEM TARTRATE 5 MG TABLET PO PRN (21:42)
[2019-07-05] MEDS: BLOOD SUGAR DIAGNOSTIC 1 EACH STRIP IN SCH ×4 (06:14→21:19)
--- NOTE | 2019-07-05 06:36 | NUR ---
MS RN PT ASLEEP AND EASILY AWAKEN, NO SOB, NO CHETS PAIN. NO S/S OF DISTRESS. NEEDS ATTENDED AND ANTICIPATED. KEPT CLEAN, DRY AND COMFORTABLE AT ALL TIMES. MONITORED FOR PAIN. NO C/O PAIN THIS TIME.AM CARE RENDERED. WILL ENDORSE NEXT SHIFT POC.
[2019-07-05] MEDS: GLUCERNA SHAKE 237 ML CAN PO SCH ×2 (07:44→16:41)
--- NOTE | 2019-07-05 07:51 | NUR ---
MS/RN - Assessment Patient is awake, A/O x 3, no complaints overnight, denies pain at this time, no apparent distress noted, afebrile, stable on room air. Saline lock on the left hand is patent, intact, with no signs of infiltration. Labs pending result. Patient educated on plan of care. Will continue with current medical management.
[2019-07-05 08:00] VITALS: BP 107/61
[2019-07-05] MEDS: MORPHINE SULFATE SR 15 MG TABLET.SA PO SCH ×2 (08:25→21:19)
[2019-07-05] MEDS: BIKTARVY PO SCH (08:25)
[2019-07-05] MEDS: DOCUSATE SODIUM 100 MG CAPSULE PO SCH ×2 (08:25→16:18)
[2019-07-05] MEDS: HYDROCODONE/APAP 5/325MG 1 EACH TABLET PO PRN (11:10)
--- NOTE | 2019-07-05 13:00 | NUR ---
MS/RN - Notes Patient resting comfortably, family at bedside, will continue to monitor closely.
[2019-07-05] MEDS: ONDANSETRON 4 MG TAB.RAPDIS PO PRN ×2 (13:20→21:19)
[2019-07-05 16:00] VITALS: BP 125/72
--- NOTE | 2019-07-05 18:25 | NUR ---
MS/RN - End of shift summary No significant change in condition seen, still with poor appetite, generalized pain well controlled. Anticipate discharge tomorrow if remain stable. Will continue with current plan of care.
--- NOTE | 2019-07-05 19:19 | NUR ---
MS RN RECEIVE PT IN BED WATCHING TV A/O X 3, STABLE AND NOT IN DISTRESS, SAFETY MEASURES IN PLACE. WILL CONTINUE TO MONITOR.
[2019-07-05 20:00] VITALS: BP 109/68
[2019-07-05] MEDS: ZOLPIDEM TARTRATE 5 MG TABLET PO PRN (21:19)
[2019-07-05] MEDS: ACETAMINOPHEN 325 MG TABLET PO PRN (21:24)
[2019-07-06] MEDS: BLOOD SUGAR DIAGNOSTIC 1 EACH STRIP IN SCH ×4 (06:08→21:16)
--- NOTE | 2019-07-06 06:13 | NUR ---
PT SLEPT WELL, NOT IN DISTRESS, PAIN WELL CONTROLLED, NO C/O PAIN AT THIS TIME. NO SIGNIFICANT CHANGES, NO SOB, AM CARE RENDERED, NEEDS ATTENDED AND ANTICIPATED. KEPT CLEAN, DRY AND COMFORTABLE AT ALL TIMES. GOOD SKIN CARE PROVIDED. SAFETY MEASURES IN PLACE. WILL ENDORSE NEXT SHIFT POC.
[2019-07-06 06:29] LABS: BASOPHILS % (AUTO) 0.1 % (0.0-2.0); HEMATOCRIT 35 % (33-45); HEMOGLOBIN 11.5 g/dL (11.5-14.8); LYMPHOCYTES # (AUTO) 0.8 /CMM (0.8-4.8); LYMPHOCYTES % (AUTO) 7.8 % (20.0-44.0); MEAN CORPUSCULAR HGB CONC 33 g/dl (31.0-36.0); MEAN CORPUSCULAR VOLUME 91 fL (82-100); MONOCYTES # (AUTO) 0.7 /CMM (0.1-1.30); MONOCYTES % (AUTO) 6.8 % (2.0-12.0); NEUTROPHILS # (AUTO) 8.5 /CMM (1.8-8.9); NEUTROPHILS % (AUTO) 85.3 % (43.0-81.0); PLATELET COUNT (AUTO) 343 /CMM (150-450); RED BLOOD CELL COUNT(AUTO) 3.87 MIL/uL (4.0-5.2)
[2019-07-06 06:51] LABS: ALBUMIN 1.6 g/dL (3.4-5.0); BILIRUBIN,TOTAL 0.5 mg/dL (0.2-1.0); CALCIUM, SERUM 8.1 mg/dL (8.5-10.1); CREATININE 0.7 mg/dL (0.6-1.3); MAGNESIUM 1.8 mg/dL (1.8-2.4); TOTAL PROTEIN, SERUM 5.9 g/dL (6.4-8.2)
[2019-07-06 06:57] LABS: THYROID STIMULATING HORMONE 2.24 uIU/mL (0.358-3.74); URIC ACID 3.8 mg/dL (2.6-7.2)
[2019-07-06 08:00] VITALS: BP 113/40
[2019-07-06] MEDS: GLUCERNA SHAKE 237 ML CAN PO SCH ×2 (08:50→17:41)
[2019-07-06] MEDS: DOCUSATE SODIUM 100 MG CAPSULE PO SCH ×3 (10:25→17:42)
[2019-07-06] MEDS: MORPHINE SULFATE SR 15 MG TABLET.SA PO SCH ×2 (10:30→21:00)
[2019-07-06] MEDS: BIKTARVY PO SCH (10:30)
[2019-07-06] MEDS: MAGNESIUM HYDROXIDE 30 ML UDC PO PRN (12:12)
[2019-07-06] MEDS: ACETAMINOPHEN 325 MG TABLET PO PRN ×2 (12:12→20:37)
[2019-07-06] MEDS ORDERED: MULT-439 PO (14:59)
[2019-07-06] MEDS ORDERED: ZINC110T PO (14:59)
[2019-07-06] MEDS ORDERED: DEXT15DR6 OP (14:59)
[2019-07-06] MEDS ORDERED: OMEP20TA5 PO (14:59)
[2019-07-06] MEDS ORDERED: ZINC50TA4 PO (14:59)
[2019-07-06] MEDS ORDERED: HYDR-4385 PO (14:59)
[2019-07-06] MEDS ORDERED: ROSU20TA2 PO (14:59)
[2019-07-06] MEDS ORDERED: CHOL200026 PO (14:59)
[2019-07-06] MEDS ORDERED: COPP2CAP PO (14:59)
[2019-07-06] MEDS ORDERED: B CO1TAB6 PO (14:59)
[2019-07-06] MEDS ORDERED: VITA400C19 PO (14:59)
[2019-07-06] MEDS ORDERED: ASCO500T10 PO (14:59)
[2019-07-06] MEDS ORDERED: LISI-607 PO (14:59)
[2019-07-06] MEDS ORDERED: IBUP-1953 PO (14:59)
[2019-07-06] MEDS ORDERED: CYAN-51 PO (14:59)
[2019-07-06] MEDS ORDERED: BETA1BEA MC (14:59)
[2019-07-06] MEDS ORDERED: METF-440 PO (14:59)
[2019-07-06] MEDS ORDERED: LACT10SO PO (14:59)
[2019-07-06] MEDS ORDERED: ASPI-605 PO (14:59)
[2019-07-06] MEDS ORDERED: BETA10003 PO (14:59)
[2019-07-06] MEDS ORDERED: DOCU-141 PO (14:59)
[2019-07-06] MEDS ORDERED: CALC-1029 PO (14:59)
[2019-07-06] MEDS ORDERED: CYAN10006 IJ (14:59)
[2019-07-06] MEDS ORDERED: LUTE10TA PO (14:59)
[2019-07-06] MEDS ORDERED: OMEG1CAP55 PO (14:59)
[2019-07-06] MEDS: HYDROCODONE/APAP 5/325MG 1 EACH TABLET PO PRN (15:38)
[2019-07-06 16:00] VITALS: BP 115/72
--- NOTE | 2019-07-06 16:29 | NUR ---
RN CONTACTED MED RECON NURSE REGARDING UPDATING HOME MED LIST.RECON NURSE UPDATED AND DR. BARRAZA CONTACTED WELL.
--- NOTE | 2019-07-06 18:00 | NUR ---
very poor appetite-not eating,does have ascites.
[2019-07-06] MEDS ORDERED: DOCUSATE SODIUM 100 MG CAPSULE PO PRN (19:30)
[2019-07-06] MEDS ORDERED: HYDROCODONE/APAP 5/325MG 1 EACH TABLET PO PRN (19:30)
[2019-07-06 20:00] VITALS: BP 135/52
[2019-07-06] MEDS ORDERED: POLYVINYL ALCOHOL 15 ML BOTTLE EACHEYE PRN (20:00)
[2019-07-06] MEDS: ONDANSETRON 4 MG TAB.RAPDIS PO PRN (20:23)
[2019-07-07] MEDS: ACETAMINOPHEN 325 MG TABLET PO PRN ×3 (04:10→22:25)
--- NOTE | 2019-07-07 06:00 | NUR ---
MS RN NOTES PT REFUSED TO HAVE INSULIN COVERAGE. EXPLAINED TO PT IMPORTANCE OF BLOOD SUGAR COVERAGE IN HER POC BUT PT STILL REFUSED. WILL CONTINUE TO MONITOR.
--- NOTE | 2019-07-07 06:35 | NUR ---
MS RN NOTES AWAKE & RESPONSIVE. NOT IN ANY DISTRESS. NO SOB NOTED. DENIES ANY PAIN OR DISCOMFORT AT THIS TIME. WITH IV-HL PATENT & INTACT. MONITORED ACCORDINGLY. CALL LIGHT WITHIN REACH. BED IN LOWEST POSITION. SR UP X 2 FOR SAFETY. WILL ENDORSE TO NEXT SHIFT.
[2019-07-07 06:42] LABS: BASOPHILS % (AUTO) 0.1 % (0.0-2.0); EOSINOPHILS % (AUTO) 0.1 % (0.0-6.0); HEMATOCRIT 35 % (33-45); HEMOGLOBIN 11.5 g/dL (11.5-14.8); LYMPHOCYTES # (AUTO) 0.8 /CMM (0.8-4.8); LYMPHOCYTES % (AUTO) 7.4 % (20.0-44.0); MEAN CORPUSCULAR HGB CONC 33 g/dl (31.0-36.0); MEAN CORPUSCULAR VOLUME 91 fL (82-100); MONOCYTES # (AUTO) 0.8 /CMM (0.1-1.30); MONOCYTES % (AUTO) 8.1 % (2.0-12.0); NEUTROPHILS # (AUTO) 8.6 /CMM (1.8-8.9); NEUTROPHILS % (AUTO) 84.3 % (43.0-81.0); PLATELET COUNT (AUTO) 381 /CMM (150-450); RED BLOOD CELL COUNT(AUTO) 3.84 MIL/uL (4.0-5.2); WHITE BLOOD COUNT (AUTO) 10.2 K/uL (4.3-11.0)
[2019-07-07] MEDS: BLOOD SUGAR DIAGNOSTIC 1 EACH STRIP IN SCH ×4 (06:46→21:21)
[2019-07-07 06:54] LABS: CALCIUM, SERUM 8.5 mg/dL (8.5-10.1); CREATININE 0.9 mg/dL (0.6-1.3); MAGNESIUM 2.1 mg/dL (1.8-2.4); PHOSPHORUS 3.3 mg/dL (2.5-4.9)
--- NOTE | 2019-07-07 07:29 | NUR ---
MS RN OPENING NOTE PATIENT IN BED RESTING COMFORTABLY. PATIENT IN NO ACUTE DISTRESS. NO SOB NOTED. PATIENT BREATHING IS EVEN AND UNLABORED. PATIENT IN NO PAIN AT THIS TIME. PATIENT BED ALARM IS ON. HOB IS ELEVATED. SAFETY PRECAUTIONS IN PLACE. PATIENT BED IS LOCKED AND IN LOWEST POSITION. CALL LIGHT WITHIN REACH. WILL CONTINUE TO MONITOR.
[2019-07-07] MEDS ORDERED: PANTOPRAZOLE 40 MG TABLET.DR PO PRN (07:30)
[2019-07-07 08:00] VITALS: BP 118/72
[2019-07-07] MEDS: GLUCERNA SHAKE 237 ML CAN PO SCH ×2 (08:20→16:59)
[2019-07-07] MEDS: VITAMIN E 400 UNIT CAPSULE PO SCH (08:24)
[2019-07-07] MEDS: LISINOPRIL (5MG) 5 MG TABLET PO SCH (08:24)
[2019-07-07] MEDS: BIKTARVY PO SCH (08:24)
[2019-07-07] MEDS: MULTIVIT W/MINERALS 1 TAB TABLET PO SCH (08:25)
[2019-07-07] MEDS: METFORMIN 500 MG TABLET PO SCH ×2 (08:25→16:59)
[2019-07-07] MEDS: CYANOCOBALAMIN 500 MCG TABLET PO SCH (08:25)
[2019-07-07] MEDS: ASPIRIN EC 81 MG TABLET.DR PO SCH (08:25)
[2019-07-07] MEDS: ZINC SULFATE 220 MG CAPSULE PO SCH (08:25)
[2019-07-07] MEDS: ASCORBIC ACID 500 MG TABLET PO SCH (08:26)
[2019-07-07] MEDS: VITAMIN B COMP W-C 1 TAB TABLET PO SCH (08:26)
[2019-07-07] MEDS: CHOLECALCIFEROL 1,000 UNIT TABLET (VIT D3) PO SCH (08:30)
[2019-07-07] MEDS: MORPHINE SULFATE SR 15 MG TABLET.SA PO SCH ×3 (08:30→21:11)
[2019-07-07] MEDS: ATORVASTATIN 40 MG TABLET PO SCH (08:31)
[2019-07-07] MEDS: CALCIUM CARB 600MG /VIT D 1 EACH TABLET PO SCH (08:31)
[2019-07-07] MEDS ORDERED: BETA CAROTENE PO SCH (09:00)
[2019-07-07] MEDS ORDERED: COPPER GLUCONATE 2 MG PO SCH (09:00)
[2019-07-07] MEDS ORDERED: LACTULOSE 10 G/15 ML UDC (PYXIS) PO PRN (09:00)
[2019-07-07] MEDS ORDERED: Medication Not On Formulary EA (Omega-3 Acid Ethyl Esters (Lovaza) 2 GM) PO SCH (09:00)
[2019-07-07] MEDS ORDERED: LUTEIN 10 MG PO SCH (09:00)
--- NOTE | 2019-07-07 11:55 | NUR ---
MS RN NOTE PATIENT BLOOD SUGAR IS 154. PATIENT IS REFUSING INSULIN COVERAGE. EDUCATED RISKS VS BENEFITS. PATIENT CONTINUED TO REFUSE. WILL CONTINUE TO MONITOR.
[2019-07-07] MEDS: ONDANSETRON 4 MG TAB.RAPDIS PO PRN ×2 (12:23→21:11)
[2019-07-07 16:00] VITALS: BP 133/78
--- NOTE | 2019-07-07 16:55 | NUR ---
MS RN NOTE PATIENT BLOOD SUGAR IS 148. PATIENT IS REFUSING INSULIN COVERAGE. EXPLAINED RISKS VS BENEFITS. PATIENT CONTINUED TO REFUSE.
[2019-07-07] MEDS: DOCUSATE SODIUM 100 MG CAPSULE PO SCH (16:59)
[2019-07-07] MEDS: HYDROCODONE/APAP 5/325MG 1 EACH TABLET PO PRN (16:59)
--- NOTE | 2019-07-07 19:01 | NUR ---
MS RN CLOSING NOTE PATIENT IN BED RESTING COMFORTABLY. PATIENT IN NO ACUTE DISTRESS. NO SOB NOTED. PATIENT BREATHING IS EVEN AND UNLABORED. PATIENT STATES NO NAUSEA AT THIS TIME. PATIENT IN NO PAIN AT THIS TIME. NO FACIAL GRIMACING NOTED. PATIENT KEPT CLEAN DRY AND COMFORTABLE THROUGHOUT SHIFT. PATIENT EXTREMITIES OFFLOADED ON PILLOWS. SAFETY PRECAUTIONS IN PLACE. PATIENT BED IS LOCKED AND IN LOWEST POSITION. CALL LIGHT WITHIN REACH. WILL ENDORSE CARE TO PM SHIFT FOR JENNIFER.
[2019-07-07 20:00] VITALS: BP 142/69
--- NOTE | 2019-07-07 20:36 | NUR ---
MS POND SUPERVISOR OF CARE NOTE GAVE REPORT TO MARIBEL GONZALEZ. PATIENT IS STABLE, NO CHANGE IN CONDITION.
--- NOTE | 2019-07-07 20:40 | NUR ---
MS RN PM NOTE REPORT RECIEVED. PATIENT SEEN STATES SHE IS NAUSEOUS. PT IS SEEN NO VOMITING BUT IS HUNCHED OVER AT BEDSIDE SPITTING INTO EMESIS BAG. PATIENT IS STABLE, PT BREATHING IS EVEN AND UNLABORED. PT DENIES DIZZINESS AND SOB. WILL CONT TO MONITOR AND CARRY OUT ORDERS.
[2019-07-07] MEDS: MAGNESIUM HYDROXIDE 30 ML UDC PO PRN (22:25)
--- NOTE | 2019-07-07 22:57 | NUR ---
patient requested tyelenol for penaloza 09/18. when presented with tyelenol patient states she pt informed that when nausea improves she can request tyelenol again. carina wasted. will cont to haresh.
--- NOTE | 2019-07-08 02:02 | NUR ---
PT HAVING IRRETRATCTABLE N/V pt nausea has progressed to vomiting. patient has vomited 3x in last [address] caceres informed. order for zofran changed to ivp 4 mg ivp q6 hrs prn nausea/vomiting.
[2019-07-08] MEDS: ONDANSETRON HCL/PF 4 MG/2 ML VIAL IV PRN ×3 (02:10→15:25)
[2019-07-08] MEDS: HYDROCODONE/APAP 5/325MG 1 EACH TABLET PO PRN (04:47)
--- NOTE | 2019-07-08 06:55 | NUR ---
MS RN PM CLOSING NOTE PATIENT IN BED RESTING COMFORTABLY. PATIENT IN NO ACUTE DISTRESS. NO SOB NOTED. PATIENT BREATHING IS EVEN AND UNLABORED. PATIENT STATES NO NAUSEA AT THIS TIME. PATIENT IN NO PAIN AT THIS TIME. NO FACIAL GRIMACING NOTED. PATIENT KEPT CLEAN DRY AND COMFORTABLE THROUGHOUT SHIFT PATIENT VOMITED X3 DURING SHIFT. SAFETY PRECAUTIONS IN PLACE. PATIENT BED IS LOCKED AND IN LOWEST POSITION. CALL LIGHT WITHIN REACH. PATIENT REFUSING INSULIN INJECTIONS LAST BS 174. WILL ENDORSE CARE TO DAY SHIFT FOR JENNIFER.
[2019-07-08] MEDS: BLOOD SUGAR DIAGNOSTIC 1 EACH STRIP IN SCH ×4 (06:56→21:57)
[2019-07-08 08:00] VITALS: BP 133/75
[2019-07-08] MEDS: GLUCERNA SHAKE 237 ML CAN PO SCH ×2 (08:00→17:00)
[2019-07-08] MEDS: ACETAMINOPHEN 325 MG TABLET PO PRN (08:32)
[2019-07-08] MEDS: VITAMIN B COMP W-C 1 TAB TABLET PO SCH (09:00)
[2019-07-08] MEDS: CHOLECALCIFEROL 1,000 UNIT TABLET (VIT D3) PO SCH (09:00)
[2019-07-08] MEDS: DOCUSATE SODIUM 100 MG CAPSULE PO SCH ×2 (09:00→16:35)
[2019-07-08] MEDS: ATORVASTATIN 40 MG TABLET PO SCH (09:00)
[2019-07-08] MEDS: CYANOCOBALAMIN 500 MCG TABLET PO SCH (09:00)
[2019-07-08] MEDS: ZINC SULFATE 220 MG CAPSULE PO SCH (09:00)
[2019-07-08] MEDS: METFORMIN 500 MG TABLET PO SCH ×2 (09:00→17:00)
[2019-07-08] MEDS: VITAMIN E 400 UNIT CAPSULE PO SCH (09:00)
[2019-07-08] MEDS: ASCORBIC ACID 500 MG TABLET PO SCH (09:00)
[2019-07-08] MEDS: MULTIVIT W/MINERALS 1 TAB TABLET PO SCH (09:00)
[2019-07-08] MEDS: ASPIRIN EC 81 MG TABLET.DR PO SCH (09:00)
[2019-07-08] MEDS: CALCIUM CARB 600MG /VIT D 1 EACH TABLET PO SCH (09:00)
[2019-07-08] MEDS: LISINOPRIL (5MG) 5 MG TABLET PO SCH (09:00)
[2019-07-08] MEDS: MORPHINE SULFATE SR 15 MG TABLET.SA PO SCH ×2 (14:45→21:00)
[2019-07-08] MEDS: BIKTARVY PO SCH (14:45)
[2019-07-08 16:00] VITALS: BP 130/74
[2019-07-08] MEDS ORDERED: MAGNESIUM HYDROXIDE 30 ML UDC PO STA (16:12)
[2019-07-08] MEDS ORDERED: MINERAL OIL 133 ML (PYXIS) 1 EA ENEMA RC ONE (18:00)
--- NOTE | 2019-07-08 18:00 | NUR ---
pt. still c/o constipation,emilio inpatient auditor contacted and regimen set up.given mom.
--- NOTE | 2019-07-08 18:30 | NUR ---
oil fleets given wt no results at this point.[email or web address] to follow with disimpaction of pt.
--- NOTE | 2019-07-08 19:30 | NUR ---
RN NOTES RECEIVED PT. AWAKE ON BED, A/OX3, ITALIAN /URDU SPEAKING, PT. RECEIVED FLEET ENEMA DURING DAYTIME...DENIES PAIN, NO SOB, CALL LIGHT WITHIN REACH, SIDERAILS UPX2, CONTINUE TO MONITOR
[2019-07-08 20:00] VITALS: BP 108/53
--- NOTE | 2019-07-08 21:30 | NUR ---
RN NOTES BLOOD SUGAR-149, PT. REFUSED INSULIN COVERAGE
--- NOTE | 2019-07-09 04:42 | NUR ---
MS RN NOTES PATIENT COMPLAINING OF HEADACHE, TYLENOL PRN 650 MG GIVEN. WILL CONTINUE TO MONITOR.
[2019-07-09] MEDS: ACETAMINOPHEN 325 MG TABLET PO PRN ×2 (05:01→23:37)
--- NOTE | 2019-07-09 05:08 | NUR ---
RN NOTES COMPLAINED OF HEADACHE AND ASKED FOR TYLENOL- TYLENOL 650MG PO GIVEN ORDERED
--- NOTE | 2019-07-09 06:34 | NUR ---
RN NOTES AWAKE, MORNING CARE RENDERED, NOT IN DISTRESS, NO PAIN NOTED, CALL LIGHT WITHIN REACH, [id number], PT. NEEDS ATTENDED
[2019-07-09] MEDS: BLOOD SUGAR DIAGNOSTIC 1 EACH STRIP IN SCH ×4 (07:57→21:37)
[2019-07-09 08:00] VITALS: BP 96/57
[2019-07-09] MEDS: GLUCERNA SHAKE 237 ML CAN PO SCH ×3 (08:00→16:50)
--- NOTE | 2019-07-09 08:00 | NUR ---
MS/RN OPENING NOTES RECEIVED PATIENT SLEEPING IN BED COMFORTABLY. PATIENT IN NO ACUTE DISTRESS. NO SOB NOTED. PATIENT BREATHING IS EVEN AND UNLABORED. PATIENT IN NO PAIN AT THIS TIME. NAUSEA AND VOMITING WAS NOTED X1, ZOFRAN 4MG WAS GIVEN, PATIENT BED ALARM IS ON. HOB IS ELEVATED. SAFETY PRECAUTIONS IN PLACE. PATIENT BED IS LOCKED AND IN LOWEST POSITION. CALL LIGHT WITHIN REACH. WILL CONTINUE TO MONITOR.
--- NOTE | 2019-07-09 08:16 | NUR ---
MS/RN OPENING NOTES RECEIVED PATIENT SLEEPING IN BED COMFORTABLY. PATIENT IN NO ACUTE DISTRESS. NO SOB NOTED. PATIENT BREATHING IS EVEN AND UNLABORED. PATIENT IN NO PAIN AT THIS TIME. PATIENT BED ALARM IS ON. HOB IS ELEVATED. PATIENT IS FOR TO BE TRANSFERRED AT [facility] FOR FURTHER EVALUATION. SAFETY PRECAUTIONS IN PLACE. PATIENT BED IS LOCKED AND IN LOWEST POSITION. CALL LIGHT WITHIN REACH. WILL CONTINUE TO MONITOR. Addendum: 07/09/19 at 0951 by ELIEZER PACE RN ERROR WRONG PATIENT NOTES.
[2019-07-09] MEDS: CALCIUM CARB 600MG /VIT D 1 EACH TABLET PO SCH (08:47)
[2019-07-09] MEDS: ATORVASTATIN 40 MG TABLET PO SCH (08:47)
[2019-07-09] MEDS: ZINC SULFATE 220 MG CAPSULE PO SCH (08:47)
[2019-07-09] MEDS: MULTIVIT W/MINERALS 1 TAB TABLET PO SCH (08:47)
[2019-07-09] MEDS: METFORMIN 500 MG TABLET PO SCH ×2 (08:47→16:46)
[2019-07-09] MEDS: DOCUSATE SODIUM 100 MG CAPSULE PO SCH ×2 (08:47→16:46)
[2019-07-09] MEDS: ASPIRIN EC 81 MG TABLET.DR PO SCH (08:51)
[2019-07-09] MEDS: LISINOPRIL (5MG) 5 MG TABLET PO SCH (08:52)
[2019-07-09] MEDS: MORPHINE SULFATE SR 15 MG TABLET.SA PO SCH ×2 (09:00→21:00)
[2019-07-09] MEDS: VITAMIN B COMP W-C 1 TAB TABLET PO SCH (09:01)
[2019-07-09] MEDS: CHOLECALCIFEROL 1,000 UNIT TABLET (VIT D3) PO SCH (09:01)
[2019-07-09] MEDS: CYANOCOBALAMIN 500 MCG TABLET PO SCH (09:01)
[2019-07-09] MEDS: ASCORBIC ACID 500 MG TABLET PO SCH (09:01)
[2019-07-09] MEDS: VITAMIN E 400 UNIT CAPSULE PO SCH (09:01)
[2019-07-09] MEDS: ONDANSETRON HCL/PF 4 MG/2 ML VIAL IV PRN ×2 (09:39→21:44)
--- NOTE | 2019-07-09 11:24 | NUR ---
MS/ RN PHARMACY WILL DELIVER THE BIKTARVY MEDS, WILL FF-UP.
[2019-07-09] MEDS: BIKTARVY PO SCH (12:24)
[2019-07-09 16:00] VITALS: BP_SYST 93; BP_SYST 95; BP_DIAS 54
--- NOTE | 2019-07-09 16:20 | NUR ---
Ultrasound Guided Paracentesis will be done tomorrow (07/10). Informed RN Anaya about it due to no radiologist on site.
--- NOTE | 2019-07-09 18:16 | NUR ---
MS/RN CLOSING NOTES PATIENT IN BED RESTING COMFORTABLY. PATIENT IN NO ACUTE DISTRESS. NO SOB NOTED. PATIENT BREATHING IS EVEN AND UNLABORED. PATIENT STATES NO NAUSEA AT THIS TIME. PATIENT IN NO PAIN AT THIS TIME. NO FACIAL GRIMACING NOTED. PATIENT KEPT CLEAN DRY AND COMFORTABLE THROUGHOUT SHIFT. PATIENT EXTREMITIES OFFLOADED ON PILLOWS. SAFETY PRECAUTIONS IN PLACE. PATIENT BED IS LOCKED AND IN LOWEST POSITION. CALL LIGHT WITHIN REACH. WILL ENDORSE PM NURSE.
--- NOTE | 2019-07-09 19:30 | NUR ---
MS RN OPENING NOTES PATIENT RECEIVED RESTING IN BED IN HIGH FOWLERS POSITION A/O X 3, MOSTLY BENGAL[place] SPEAKING. STABLE ON RA, BREATHING EVEN AND UNLABORED, NO SOB NOTED. NO CURRENT COMPLAINTS OF PAIN OR DISCOMFORT. IV LOCATED ON LEFT WRIST #22. SAFETY PRECAUTIONS IN PLACE WITH BED IN LOWEST POSITION, SIDE RAILS UP X 2, BREAKS ON, AND CALL LIGHT WITHIN REACH. WILL CONTINUE TO MONITOR.
[2019-07-09 20:00] VITALS: BP 108/62
--- NOTE | 2019-07-09 21:38 | NUR ---
MS RN NOTES PATIENT REFUSED MORPHINE PO. CLAIMS IT MAKES HER NAUSEOUS. DID NOT ADMIT. WILL CONTINUE TO MONITOR.
[2019-07-10] MEDS: ONDANSETRON HCL/PF 4 MG/2 ML VIAL IV PRN ×2 (06:32→17:24)
[2019-07-10] MEDS: BLOOD SUGAR DIAGNOSTIC 1 EACH STRIP IN SCH ×4 (06:34→22:05)
--- NOTE | 2019-07-10 06:47 | NUR ---
MS RN CLOSING NOTES PATIENT CURRENTLY RESTING IN BED A/O x3, ANGOL[place] SPEAKING MOSTLY. PATIENT STABLE ON RA, BREATHING EVEN AND UNLABORED, NO SOB. NO SIGNS OF ACUTE DISTRESS AND NO COMPLAINTS OF PAIN OR DISCOMFORT. IV LOCATED ON LEFT WRIST G#22, RIGHT CHEST PORTACATH NOTED FOR CHEMO USE ONLY. PATIENT WAS KEPT CLEAN AND DRY THROUGHOUT SHIFT. ALL NEEDS ATTENDED TO. SAFETY PRECAUTIONS IN PLACE WITH BED IN LOWEST POSITION, BREAKS ON, SIDE RAILS UP x2, AND CALL LIGHT WITHIN REACH. WILL ENDORSE TO ON ONCOMING SHIFT ABOUT JENNIFER.
[2019-07-10] MEDS: GLUCERNA SHAKE 237 ML CAN PO SCH ×2 (07:50→17:00)
[2019-07-10 08:00] VITALS: BP 108/60
--- NOTE | 2019-07-10 08:00 | NUR ---
m/s import customs clearing agent: initial assessment received pt in bed awake, a/ox3 with dx: ascites. abdomen distended, pt for us guided paracentesis today. remains with poor appetite and difficulty swallowing, pt takes her pills one at a time with pudding. instructed to call for assistance. will continue to monitor.
[2019-07-10] MEDS: LISINOPRIL (5MG) 5 MG TABLET PO SCH (08:32)
[2019-07-10] MEDS: MULTIVIT W/MINERALS 1 TAB TABLET PO SCH (08:37)
[2019-07-10] MEDS: ATORVASTATIN 40 MG TABLET PO SCH (08:37)
[2019-07-10] MEDS: ASCORBIC ACID 500 MG TABLET PO SCH (08:37)
[2019-07-10] MEDS: CHOLECALCIFEROL 1,000 UNIT TABLET (VIT D3) PO SCH (08:37)
[2019-07-10] MEDS: ASPIRIN EC 81 MG TABLET.DR PO SCH (08:37)
[2019-07-10] MEDS: ZINC SULFATE 220 MG CAPSULE PO SCH (08:37)
[2019-07-10] MEDS: VITAMIN B COMP W-C 1 TAB TABLET PO SCH (08:37)
[2019-07-10] MEDS: METFORMIN 500 MG TABLET PO SCH ×2 (08:37→17:00)
[2019-07-10] MEDS: CYANOCOBALAMIN 500 MCG TABLET PO SCH (08:37)
[2019-07-10] MEDS: CALCIUM CARB 600MG /VIT D 1 EACH TABLET PO SCH (08:37)
[2019-07-10] MEDS: DOCUSATE SODIUM 100 MG CAPSULE PO SCH ×2 (08:38→17:00)
[2019-07-10] MEDS: BIKTARVY PO SCH (08:38)
[2019-07-10] MEDS: VITAMIN E 400 UNIT CAPSULE PO SCH (08:38)
[2019-07-10] MEDS: MORPHINE SULFATE SR 15 MG TABLET.SA PO SCH ×2 (08:39→20:48)
--- NOTE | 2019-07-10 10:40 | NUR ---
m/s child and family services worker: notes us guided paracentesis, therapeutic completed with 3.6 liters of clear orange colored output, gary. well. instructed to call for assistance. will monitor.
--- NOTE | 2019-07-10 12:00 | NUR ---
m/s granite block paver: notes refused lunch, pt just takes pudding and fluids. in apparent distress noted. will continue to monitor.
[2019-07-10] MEDS: ACETAMINOPHEN 325 MG TABLET PO PRN ×2 (13:33→22:54)
[2019-07-10] MEDS: HYDROCODONE/APAP 5/325MG 1 EACH TABLET PO PRN (14:52)
--- NOTE | 2019-07-10 14:52 | NUR ---
m/s criminal defense attorney: notes c/o 04/20 generalized discomfort. medicated with norco 5/325mg po as ordered. friend in visiting at this time. will continue to monitor.
[2019-07-10 16:30] VITALS: BP 96/54
--- NOTE | 2019-07-10 17:24 | NUR ---
m/s lacquer machine feeder: notes zofran 4mg ivp given by rn for c/o nausea and before meals, but pt still refused to eat. encourage po fluids and ensure. pt refused pm meds. no acute distress noted. instructed to call for assistance. will monitor.
--- NOTE | 2019-07-10 17:54 | NUR ---
m/s pocket machine operator: notes pt resting quietly in bed with hob elevated, still refuses her dinner. pt remains with poor appetite. will continue to monitor.
--- NOTE | 2019-07-10 19:20 | NUR ---
m/s roll carrier: notes bedside report given to alina (diallo) for continuity of care.
--- NOTE | 2019-07-10 19:25 | NUR ---
MS/RN OPENING NOTES: RECEIVED PATIENT RESTING IN BED IN HIGH FOWLERS POSITION A/O X 3, IN STABLE CONDITION, ON ROOM AIR, BREATHING EVEN AND UNLABORED, NO SOB NOTED. NO CURRENT COMPLAINTS OF PAIN OR DISCOMFORT. IV LOCATED ON LEFT WRIST #22. SAFETY PRECAUTIONS IN PLACE WITH BED IN LOWEST POSITION, SIDE RAILS UP X 2, BREAKS ON, AND CALL LIGHT WITHIN REACH. WILL CONTINUE TO MONITOR ACCORDINGLY.
[2019-07-10 20:00] VITALS: BP 90/60
[2019-07-10 20:53] VITALS: BP 90/60
[2019-07-10] MEDS ORDERED: IV D5/ 0.9% NACL 1,000 ML IV SCH (21:30)
[2019-07-11] MEDS: HYDROCODONE/APAP 5/325MG 1 EACH TABLET PO PRN ×3 (03:46→21:13)
--- NOTE | 2019-07-11 03:46 | NUR ---
MS/RN NOTES: PATIENT COMPLAINED OF GENERALIZED PAIN LEVEL OF 6. GIVEN NORCO 5MG FOR PAIN. IN STABLE CONDITION. WILL CONTINUE TO MONITOR ACCORDINGLY.
[2019-07-11] MEDS: BLOOD SUGAR DIAGNOSTIC 1 EACH STRIP IN SCH ×3 (06:29→18:29)
--- NOTE | 2019-07-11 07:28 | NUR ---
MS/RN CLOSING NOTES: PATIENT CURRENTLY RESTING IN BED A/O x3, FARO[place] SPEAKING BUT UNDERSTANDS [place]. PATIENT STABLE ON RA, BREATHING EVEN AND UNLABORED, NO SOB. NO SIGNS OF ACUTE DISTRESS AND NO COMPLAINTS OF PAIN OR DISCOMFORT. IV LOCATED ON LEFT WRIST G#22, RIGHT CHEST PORTACATH NOTED FOR CHEMO USE ONLY. PATIENT WAS KEPT CLEAN AND DRY THROUGHOUT SHIFT. ALL NEEDS ATTENDED TO. SAFETY PRECAUTIONS IN PLACE WITH BED IN LOWEST POSITION, BREAKS ON, SIDE RAILS UP x2, AND CALL LIGHT WITHIN REACH. WILL ENDORSE TO ON ONCOMING DAY SHIFT ABOUT JENNIFER.
--- NOTE | 2019-07-11 07:30 | NUR ---
PT RECEIVED RESTING COMFORTABLY IN BED. NO S/S OR C/O PAIN OR DISTRESS NOTED. SIDE RAILS UP X2, CALL LIGHT LEFT WITHIN REACH. WILL CONTINUE PLAN OF CARE.
[2019-07-11 08:00] VITALS: BP 108/52
[2019-07-11] MEDS ORDERED: METOCLOPRAMIDE HCL 10 MG/2 ML VIAL IV PRN (08:00)
[2019-07-11] MEDS: ONDANSETRON HCL/PF 4 MG/2 ML VIAL IV PRN (08:29)
[2019-07-11] MEDS: GLUCERNA SHAKE 237 ML CAN PO SCH ×2 (08:30→17:00)
[2019-07-11] MEDS: VITAMIN B COMP W-C 1 TAB TABLET PO SCH (08:30)
[2019-07-11] MEDS: DOCUSATE SODIUM 100 MG CAPSULE PO SCH ×2 (08:31→17:00)
[2019-07-11] MEDS: MULTIVIT W/MINERALS 1 TAB TABLET PO SCH (08:31)
[2019-07-11] MEDS: METFORMIN 500 MG TABLET PO SCH ×2 (08:31→17:00)
[2019-07-11] MEDS: CHOLECALCIFEROL 1,000 UNIT TABLET (VIT D3) PO SCH (08:31)
[2019-07-11] MEDS: ASCORBIC ACID 500 MG TABLET PO SCH (08:31)
[2019-07-11] MEDS: CYANOCOBALAMIN 500 MCG TABLET PO SCH (08:31)
[2019-07-11] MEDS: LISINOPRIL (5MG) 5 MG TABLET PO SCH (08:31)
[2019-07-11] MEDS: CALCIUM CARB 600MG /VIT D 1 EACH TABLET PO SCH (08:31)
[2019-07-11] MEDS: ASPIRIN EC 81 MG TABLET.DR PO SCH (08:31)
[2019-07-11] MEDS: BIKTARVY PO SCH (08:32)
[2019-07-11] MEDS: ZINC SULFATE 220 MG CAPSULE PO SCH (08:32)
[2019-07-11] MEDS: VITAMIN E 400 UNIT CAPSULE PO SCH (08:32)
[2019-07-11] MEDS: ATORVASTATIN 40 MG TABLET PO SCH (08:32)
[2019-07-11] MEDS: MORPHINE SULFATE SR 15 MG TABLET.SA PO SCH ×2 (08:43→21:00)
[2019-07-11] MEDS ORDERED: IV D5/ 0.9% NACL 1,000 ML IV PRN (09:00)
[2019-07-11 10:00] VITALS: BP 114/60
[2019-07-11] MEDS ORDERED: LIDOCAINE VISCOUS 2% UD 15 ML UDC MM PRN (11:00)
--- NOTE | 2019-07-11 12:00 | NUR ---
MEDICATION HELD INSULIN. BS IS 150 BUT PATIENT REFUSES TO EAT. WILL CONTINUE TO MONITOR.
[2019-07-11] MEDS: ACETAMINOPHEN 325 MG TABLET PO PRN (14:04)
[2019-07-11 16:00] VITALS: BP 123/72
--- NOTE | 2019-07-11 17:30 | NUR ---
MEDICATION HELD INSULIN. PT REFUSED METFORMIN, AND REFUSED DINNER. MADE AWARE.
--- NOTE | 2019-07-11 18:30 | NUR ---
CHANGE OF SHIFT REPORT PT RESTING COMFORTABLY IN BED. NO S/S OR C/O PAIN OR DISTRESS NOTED. SIDE RAILS UP X2, CALL LIGHT LEFT WITHIN REACH. PT KEPT CLEAN, DRY, AND COMFORTABLE. NO SIGNIFICANT CHANGES SINCE PREVIOUS SHIFT. WILL GIVE REPORT TO BRITTANI GONZALEZ.
[2019-07-11] MEDS ORDERED: NUT.237L45 PO (18:43)
[2019-07-11] MEDS ORDERED: ONDA4VIA23 IV (18:43)
[2019-07-11] MEDS ORDERED: LIDO20SO13 MM (18:43)
[2019-07-11] MEDS ORDERED: METO5VIA6 IV (18:43)
[2019-07-11] MEDS ORDERED: MAGN400O6 PO (18:43)
[2019-07-11] MEDS ORDERED: HYDR-3972 PO (18:43)
[2019-07-11] MEDS ORDERED: MAG30ORA PO (18:43)
[2019-07-11] MEDS ORDERED: DOCU-270 PO (18:43)
[2019-07-11] MEDS ORDERED: MORP15TA10 PO (18:43)
[2019-07-11] MEDS ORDERED: Lorazepam PO (18:43)
--- NOTE | 2019-07-11 19:15 | NUR ---
MS/RN OPENING NOTES: RECEIVED PATIENT RESTING IN BED IN HIGH FOWLERS POSITION A/O X 3, IN STABLE CONDITION, ON ROOM AIR, BREATHING EVEN AND UNLABORED, NO SOB NOTED. NO CURRENT COMPLAINTS OF PAIN OR DISCOMFORT. IV LOCATED ON LEFT WRIST #22. SAFETY PRECAUTIONS ARE IN PLACE WITH BED IN LOWEST POSITION, SIDE RAILS UP X 2, BREAKS ON, AND CALL LIGHT WITHIN REACH. WILL CONTINUE TO MONITOR ACCORDINGLY.
[2019-07-11 20:00] VITALS: BP 112/66
--- NOTE | 2019-07-11 21:13 | NUR ---
MS/RN NOTES: PATIENT REFUSED MORPHINE SULFATE 15MG PO. PER PATIENT "IT MAKES ME DIZZY". COMPLAINED OF HEADACHE WITH PAIN LEVEL OF 6. PREFERS TO TAKE NORCO. NORCO 5MG GIVEN. TOLERATED WELL. VS WNL. IN STABLE CONDITION. WILL CONTINUE MONITORING PT ACCORDINGLY.
--- NOTE | 2019-07-11 21:55 | NUR ---
MS/RN NOTES: REPORT GIVEN TO [facility] NURSE AT 2155. ALL INFORMATION RELAYED. [facility] ARRIVED FOR PATIENT TRANSPORTATION TO [facility]. VITAL SIGNS WNL. IV SITE ON THE LEFT WRIST #22G REMOVED. APPLIED PRESSURE TAPE AND GAUZE TO PREVENT BLEEDING. ALL DISCHARGE INFORMATION GIVEN TO THE PATIENT. EDUCATED ABOUT TEACHINGS. MEDICATION WILL BE PICKED UP BY FLOR SANCHEZ (A FRIEND FROM [facility]. #[phone]) TOMORROW BECAUSE PHARMACY IS CLOSED. PATIENT LEFT VIA GURNEY AND LEFT THE UNIT AT STABLE CONDITION.
== END 2019-07-11 21:55 | DRG 754 ==
LOC: ER 12:08 → MED 14:47
PROVIDERS: ADMIT Family Medicine; ATTEND Family Medicine
PROC: 0W9G3ZZ Drainage of Peritoneal Cavity, Percutaneous Approach (ICD-10-PCS; principal; 2019-06-29)
PROC: 02HV33Z Insertion of Infusion Device into Superior Vena Cava, Percutaneous Approach (ICD-10-PCS; 2019-07-03)
PROC: B548ZZA Ultrasonography of Superior Vena Cava, Guidance (ICD-10-PCS; 2019-07-03)
PROC: 0JH63WZ Insertion of Totally Implantable Vascular Access Device into Chest Subcutaneous Tissue and Fascia, Percutaneous Approach (ICD-10-PCS; 2019-07-03)
PROC: 0W9G3ZZ Drainage of Peritoneal Cavity, Percutaneous Approach (ICD-10-PCS; 2019-07-10)
DX: C56.9 Malignant neoplasm of unspecified ovary (principal); E43 Unspecified severe protein-calorie malnutrition; R18.0 Malignant ascites; C78.00 Secondary malignant neoplasm of unspecified lung; E87.1 Hypo-osmolality and hyponatremia; C78.7 Secondary malignant neoplasm of liver and intrahepatic bile duct; C78.6 Secondary malignant neoplasm of retroperitoneum and peritoneum; J90 Pleural effusion, not elsewhere classified; E87.5 Hyperkalemia; I10 Essential (primary) hypertension; E88.09 Other disorders of plasma-protein metabolism, not elsewhere classified; E11.65 Type 2 diabetes mellitus with hyperglycemia; Z68.20 Body mass index [BMI] 20.0-20.9, adult; D64.9 Anemia, unspecified; E87.70 Fluid overload, unspecified; T40.605A Adverse effect of unspecified narcotics, initial encounter; K59.03 Drug induced constipation; Z79.84 Long term (current) use of oral hypoglycemic drugs; Y92.89 Other specified places as the place of occurrence of the external cause
CPT/HCPCS: 36415; 71045-TC; 76942-TC; 80048-TC; 80053-TC; 80061-TC; 80076-TC; 81000-TC; 82247-TC; 82378; 82962-TC; 83690-TC; 83735-TC; 84100-TC; 84443-TC; 84484-TC; 84550-TC; 85025-TC; 85610-TC; 86300; 86301; 86304; 86850-TC; 87070-TC; 87081-TC; 89051-TC; 97116-TC; 97530-TC; G0378; J1100; J1644; J2405; J2765; J3490; J7030; J7042; J7050; Q0162; Q9966; Q9967